=== PATIENT | female | born 1955 | race Caucasian/White ===

== ENCOUNTER 2017-09-29 09:51 | Emergency (ER) | payer BC ==
[2017-09-29] MEDS ORDERED: Sodium Bicarbonate 8.4% 50 MEQ/50 ML Syringe IVPUSH ONE (10:04)
[2017-09-29] MEDS ORDERED: Calcium Chloride 10% 1 GM/10 ML Syringe IVPUSH ONE (10:04)
[2017-09-29] MEDS ORDERED: Sodium Chloride 0.9% 1,000 ML IV ONE ×3 (10:04→10:27)
[2017-09-29] MEDS ORDERED: EPINEPHrine 1:10,000 1 MG/10 ML Syringe IVPUSH ONE ×5 (10:04→10:42)
[2017-09-29] MEDS ORDERED: Sodium Chloride 0.9% 2.5 ML Syringe FLUSH PRN (10:06)
[2017-09-29] MEDS ORDERED: Sodium Chloride 0.9% 10 ML Syringe FLUSH PRN (10:06)
--- NOTE | 2017-09-29 10:29 | EDM.PDOC ---
ED HPI GENERAL MEDICAL PROBLEM - General Chief Complaint: CPR in Progress Stated Complaint: AMB Time Seen by Provider: 09/29/17 10:06 - History of Present Illness INITIAL COMMENTS - FREE TEXT/NARRATIVE: HISTORY AND PHYSICAL: History of present illness: The patient is a 61-year-old female whose history is given to me by her and has no significant past medical history and presents via EMS after complaining of some vague abdominal pain dizziness and then becoming unresponsive. According to EMS they were dispatched for abdominal discomfort on their arrival patient was unresponsive and throughout the course of their evaluation she began to have agonal breathing and a Nima airway was placed and she proceeded to go into cardiopulmonary arrest on arrival to the ED. The tells me that he noted that she was having a normal morning and then had some complaints of some vague abdominal pain and then she proceeded to sit down after doing some normal activity. He went up to her and she was sitting on the ground and she seemed to not be speaking in her normal voice and seemed to be confused. He was able to get an answer to his questions she said that she was very dizzy. She did not complain of chest pain or headache. All the EMS and on their arrival she was speaking to them complaining of vague abdominal pain. On arrival here to the ED the patient is unresponsive and a Nima airway is in place and CPR was in progress. On initial rhythm checked she was in PEA and did not have a pulse but did have agonal beats. There is no history of any trauma with these events. Her she has no significant past medical history no allergies and takes no medications. Review of systems: As per history of present illness and below otherwise all systems reviewed and negative. Past medical history: As per history of present illness and as reviewed below otherwise noncontributory. Surgical history: As per history of present illness and as reviewed below otherwise noncontributory. Social history: No reported history of drug or alcohol abuse. Family history: As per history of present illness and as reviewed below otherwise noncontributory. Physical exam: General: Well-developed mildly overweight female who is nontoxic and nonverbal with airway in place. HEENT: Atraumatic, normocephalic, pupils are midrange and sluggish and there is no injected sclera, negative for conjunctival pallor or scleral icterus, mucous membranes moist, throat clear, neck supple, nontender, trachea midline. As no evidence of any scalp or head trauma Lungs: Clear to auscultation and the patient is being ventilated. There is no wheezing stridor , breath sounds equal bilaterally, chest nontender. Heart: Initially there are no cardiac sounds but once a pulse was regained heart sounds are distant and difficult to evaluate. Abdomen: Soft, nondistended, nontender. There is no palpable masses no obvious fluid wave or distention and bowel sounds are hypoactive Negative for masses or hepatosplenomegaly. Pelvis: Stable nontender. Genitourinary: Deferred. Rectal: Deferred. Extremities: Atraumatic, is no visible evidence of any soft tissue swelling or bony deformities. Distal extremities are cool Neuro: She is unresponsive and has no spontaneous breathing and is not moving any extremities. Skin: Skin is cool and intermittently pallor but there is no diaphoresis and no evidence of any external rashes Diagnostics: EKG portable chest CBC CMP troponin INR d-dimer ABG Limited 2-D echo and abdominal ultrasound were performed at bedside per my request Therapeutics: IV O2 monitor please see code sheet for IV fluids and medications given 1007: This case was discussed with Dr. Lynn at [facility] in [place] in the ER who accepts the patient for transfer. He is aware that it is unclear what the cause of this problem is nor have any intensive testing performed such as CT scan of the head abdomen and pelvis. He is aware that he limited echo was performed on both the heart and abdomen. He is also aware as it is unclear if this case is criminally cardiac that antiarrhythmics have not been given and that the patient's tendency is to bradycardia down rather than go into an odd rhythm and the drip will be given. Hospital course: After the patient arrived in the ED and was noted to be in PEA CPR was continued and the Nima airway was replaced with an ET tube by anesthesia without complication. A chest x-ray was performed and checked by me. Patient did not have any crepitus or tracheal deviation and had breath sounds bilaterally with ventilation. The abdomen was not distended but a quick abdominal ultrasound was performed which did not see any gross AAA or free fluid and a quick bedside cardiac ultrasound was performed as well which did not reveal any pericardial fluid and good motion of the heart. Patient did receive epi and atropine as well as Versed prior to arrival and throughout the course of her ED stay she repeatedly required doses of epinephrine and flight team is hanging and appendectomy drip. Patient received IV fluids as well as calcium chloride and bicarbonate. An Accu-Chek was repeated and flight team has been at bedside for almost 20 minutes and is currently attempting to package and get in route. The family is also at bedside and is aware that we are unsure of what is causing this to occur whether it is primarily cardiac or if it is related to something central nervous system or abdominally. With each time that the patient moves her pulse she seems to bradycardia down and then responds to the appendectomy. and daughter are at bedside and aware of the grave nature and the need for quick transfer. The family are also aware that all these tests are very preliminary and that a more complete evaluation will have to be performed at the receiving hospital. Critical care time excluding procedures:35min Impression: Vague symptoms of abdominal pain and dizziness with acute cardiopulmonary arrest etiology unclear Definitive disposition and diagnosis as appropriate pending reevaluation and review of above. - Related Data Allergies Allergy/AdvReac Type Severity Reaction Status Date / Time propoxyphene HCl Allergy Nausea and Verified 09/29/17 10:04 [From [place]] Vomiting Home Meds: Home Meds . [Unable to Verify Home Med List] 09/29/17 [History] Past Medical History - Past Health History Medical/Surgical History: Denies Medical/Surgical History Social & Family History - Family History Family Medical History: Unobtainable - Tobacco Use Smoking Status *Q: Unknown Ever Smoked ED ROS GENERAL - Review of Systems Review Of Systems: ROS reveals no pertinent complaints other than HPI. ED EXAM, GENERAL - Physical Exam Exam: See Below (see dictation) Course - Orders/Labs/Meds Orders: Active Orders 24 hr Category Date Time Status Cardiac Monitoring [RC] . DIRECTED Care 09/29/17 10:07 Active EKG Documentation Completion [RC] STAT Care 09/29/17 10:07 Active Oxygen Therapy, ED [RC] ASDIRECTED Care 09/29/17 10:07 Active Pulse Oximetry [RC] ASDIRECTED Care 09/29/17 10:07 Active Abdomen Ltd [US] Stat Exams 09/29/17 10:21 Ordered Chest 1V Frontal [CR] Stat Exams 09/29/17 10:10 Taken Echo 2D wo Cont [US] Stat Exams 09/29/17 10:21 Ordered BLOOD GAS ARTERIAL [BG] Stat Lab 09/29/17 10:10 Ordered COMPREHENSIVE METABOLIC PN,CMP [CHEM] Stat Lab 09/29/17 10:07 Ordered D-DIMER QUANTITATIVE [COAG] Stat Lab 09/29/17 10:09 Ordered INR,PT,PROTHROMBIN TIME [COAG] Stat Lab 09/29/17 10:09 Ordered TROPONIN I [CHEM] Stat Lab 09/29/17 10:07 Ordered UA W/MICROSCOPIC [URIN] Stat Lab 09/29/17 10:10 Ordered Sodium Chloride 0.9% [Saline Flush] Med 09/29/17 10:06 Active 10 ml FLUSH ASDIRECTED PRN Sodium Chloride 0.9% [Saline Flush] Med 09/29/17 10:06 Active 2.5 ml FLUSH ASDIRECTED PRN Nasogastric Orogastric Tube Insertion [OM.PC] Stat Oth 09/29/17 10:07 Ordered Saline Lock Insert [OM.PC] Stat Oth 09/29/17 10:07 Ordered Medication Orders Sodium Chloride (Saline Flush) 10 ml FLUSH ASDIRECTED PRN PRN Reason: Keep Vein Open Sodium Chloride (Saline Flush) 2.5 ml FLUSH ASDIRECTED PRN PRN Reason: Keep Vein Open Labs: Laboratory Tests 09/29/17 Range/Units 09:25 WBC 15.82 H (4.0-11.0) K/uL RBC 4.76 (4.30-5.90) M/uL Hgb 13.5 (12.0-16.0) g/dL Hct 44.9 (36.0-46.0) % MCV 94.3 (80.0-98.0) fL MCH 28.4 (27.0-32.0) pg MCHC 30.1 L (31.0-37.0) g/dL RDW Std Deviation 48.3 (28.0-62.0) fl RDW Coeff of Nell 14 (11.0-15.0) % Plt Count 162 (150-400) K/uL MPV 11.20 (7.40-12.00) fL Add Manual Diff YES Neutrophils % (Manual) 42 L (48.0-80.0) % Band Neutrophils % 3 % Lymphocytes % (Manual) 49 H (16.0-40.0) % Monocytes % (Manual) 2 (0.0-15.0) % Eosinophils % (Manual) 4 (0.0-7.0) % Nucleated RBC % 0.0 /100WBC Absolute Seg Neuts 6.6 H (1.4-5.7) Band Neutrophils # 0.5 Lymphocytes # (Manual) 7.8 H (0.6-2.4) Monocytes # (Manual) 0.3 (0.0-0.8) Eosinophils # (Manual) 0.6 (0.0-0.7) Nucleated RBCs # 0 K/uL Meds: Medications Generic Name Dose Route Start Last Admin Trade Name Freq PRN Reason Stop Dose Admin Sodium Chloride 10 ml 09/29/17 10:06 Saline Flush FLUSH ASDIRECTED PRN Keep Vein Open Sodium Chloride 2.5 ml 09/29/17 10:06 Saline Flush FLUSH ASDIRECTED PRN Keep Vein Open Departure - Departure Time of Disposition: 10:38 Disposition: DC/Tfer to Acute Hospital 02 Condition: Critical Clinical Impression: Unresponsive, Dizziness, Cardiac arrest Abdominal pain Qualifiers: Abdominal location: generalized Qualified Code(s): R10.84 - Generalized abdominal pain - Discharge Information Forms: ED Department Discharge - My Orders Last 24 Hours: My Active Orders 09/29/17 10:06 Sodium Chloride 0.9% [Saline Flush] 10 ml FLUSH ASDIRECTED PRN Sodium Chloride 0.9% [Saline Flush] 2.5 ml FLUSH ASDIRECTED PRN 09/29/17 10:07 Cardiac Monitoring [RC] . DIRECTED EKG Documentation Completion [RC] STAT Oxygen Therapy, ED [RC] ASDIRECTED Pulse Oximetry [RC] ASDIRECTED COMPREHENSIVE METABOLIC PN,CMP [CHEM] Stat TROPONIN I [CHEM] Stat Nasogastric Orogastric Tube Insertion [OM.PC] Stat Saline Lock Insert [OM.PC] Stat 09/29/17 10:09 D-DIMER QUANTITATIVE [COAG] Stat INR,PT,PROTHROMBIN TIME [COAG] Stat 09/29/17 10:10 Chest 1V Frontal [CR] Stat BLOOD GAS ARTERIAL [BG] Stat UA W/MICROSCOPIC [URIN] Stat 09/29/17 10:21 Abdomen Ltd [US] Stat Echo 2D wo Cont [US] Stat - Assessment/Plan Last 24 Hours: My Active Orders 09/29/17 10:06 Sodium Chloride 0.9% [Saline Flush] 10 ml FLUSH ASDIRECTED PRN Sodium Chloride 0.9% [Saline Flush] 2.5 ml FLUSH ASDIRECTED PRN 09/29/17 10:07 Cardiac Monitoring [RC] . DIRECTED EKG Documentation Completion [RC] STAT Oxygen Therapy, ED [RC] ASDIRECTED Pulse Oximetry [RC] ASDIRECTED COMPREHENSIVE METABOLIC PN,CMP [CHEM] Stat TROPONIN I [CHEM] Stat Nasogastric Orogastric Tube Insertion [OM.PC] Stat Saline Lock Insert [OM.PC] Stat 09/29/17 10:09 D-DIMER QUANTITATIVE [COAG] Stat INR,PT,PROTHROMBIN TIME [COAG] Stat 09/29/17 10:10 Chest 1V Frontal [CR] Stat BLOOD GAS ARTERIAL [BG] Stat UA W/MICROSCOPIC [URIN] Stat 09/29/17 10:21 Abdomen Ltd [US] Stat Echo 2D wo Cont [US] Stat
[2017-09-29] MEDS ORDERED: EPINEPHrine 1 MG/ML 30 ML MDV ONE (10:30)
[2017-09-29] MEDS ORDERED: Sodium Bicarbonate 8.4% 50 MEQ/50 ML Syringe ONE (10:30)
[2017-09-29] MEDS ORDERED: Calcium Chloride 10% 1 GM/10 ML Syringe ONE (10:30)
[2017-09-29] MEDS ORDERED: EPINEPHrine 1:10,000 1 MG/10 ML Syringe ONE (10:30)
[2017-09-29 10:36] LABS: CHLORIDE,CL 105 mmol/L (98-107); SODIUM,NA 139 mmol/L (136-145)
--- NOTE | 2017-09-29 10:37 | PCM.SN ---
- Free Text/Narrative Note: Called to the ER for Code Blue. On patient arrival CPR is in progress by EMS, Nima airway is in place and a mild air leak is noted during ventilation. Nima Airway was removed, DL with Jacques 2 yields Grade I view. 7.0 ETT cuffed placed. +BBS, +EtCO2 was noted as well. CXR ordered and is pending at this time. ABG was drawn from Rt wrist, 2mL of very dark red blood was obtained.
--- NOTE | 2017-09-29 17:33 | CR ---
EXAM DATE: 09/29/17 PATIENT'S AGE: 61 Patient: SARAH RAE Facility: [place], [place] Site . Site : 1955 Study: XRay Chest [id number]/20/2018 10:18:43 AM Ordering Physician: Simon Hassan Final Report: INDICATION: Pain and SOB. CPR in progress. TECHNIQUE: Supine portable AP image of the chest. COMPARISON: None. FINDINGS: Endotracheal tube in place with tip 1.5 cm above the sahara. Lungs low in volume without obvious infiltrate. No obvious pneumothorax or pleural effusion. Heart size grossly normal. No obvious fracture. IMPRESSION: 1. Endotracheal tube tip 1.5 cm above the sahara. 2. Lungs low in volume, grossly clear. Dictated by Antwan Varghese MD @ Sep 29 2017 10:43AM (Electronic Signature) Report Signed by Proxy. STEPHEN
--- NOTE | 2017-09-29 17:34 | US ---
EXAM DATE: 09/29/17 PATIENT'S AGE: 61 Patient: SARAH RAE Facility: [place], [place] Site . Site : 1955 Study: US Abdomen [id number]/[id number] 10:32:38 AM Ordering Physician: Siomn Hassan Final Report: INDICATION: Cardiac arrest. Rule out aneurysm and free fluid. TECHNIQUE: Limited grayscale ultrasound examination of the abdominal aorta and abdomen for fluid. COMPARISON: None. FINDINGS: The abdominal aorta measures up to 2.4 cm in diameter. No aneurysm is apparent. No free intraperitoneal fluid is demonstrated. IMPRESSION: Limited abdominal ultrasound revealing no evidence of abdominal aortic aneurysm or free intraperitoneal fluid. Dictated by Antwan Varghese MD @ Sep 29 2017 10:48AM (Electronic Signature) Report Signed by Proxy. STEPHEN
--- NOTE | 2017-10-01 15:04 | ECHO ---
EXAM DATE: 09/29/17 PATIENT'S AGE: 61 The echocardiogram report can be seen in this patient's EMR (Electronic Medical Record) in the Reports section. The report has also been scanned into PACs. STEPHEN
== END 2017-09-29 10:54 ==
LOC: MW.ED 09:51
DX: I46.9 Cardiac arrest, cause unspecified (principal); R10.84 Generalized abdominal pain; Z88.8 Allergy status to other drugs, medicaments and biological substances
CPT/HCPCS: 36415; 36600; 71045; 76705; 80053; 82803; 84484; 85025; 85379; 85610; 92950; 93005; 93307; 99291; J0171; J7040; 31500